=== PATIENT | male | born 1995 | race Hispanic/Latino ===

== ENCOUNTER 2016-09-07 19:49 | Observation (INO) | payer OTHER ==
[~2016-09-07] VITALS: Ht 167.6 cm; Wt 73.0 kg
[2016-09-07 19:57] VITALS: BP 106/64; PULSE 90; RESP 16; O2SAT 96
--- NOTE | 2016-09-07 20:38 | ED.REPORT ---
HPI-Rash / Abscess Date of Service Sep 07, 2016 ED Provider: Dr. Lili Cleaning Patient is a 21-year-old male who presents to the ED sent from due to rectal pain onset 7 days ago. Patient noticed pain and swelling to the perirectal area about a week ago. He was seen in tonight and was told he had a perirectal abscess. doctor attempted to drain but was unsuccessful. Pt was sent here for further evaluation. He reports that it does not hurt when he goes to the restroom, just when he tries to sit down. Pt denies fever, chills, and discharge. Nursing Notes Stated Complaint: ABSCESS Chief Complaint: Skin Rash/Abscess Nursing Notes Reviewed: Yes Allergies: Coded Allergies: No Known Allergies (Unverified , 09/07/16) General Time Seen by MD: 20:38 Chief Complaint Abscess Hx Obtained From: Patient Arrived By: Walk-in Onset Occurred: 1 week ago Symptom Duration: Since onset Location: : Rectal area Severity: Current: No pain currently Recent Healthcare: No recent doctor visit, No recent hospitalization Similar Sx Previous: No Past Medical History Past Medical History denies Past Surgical History denies Smoking History Unknown if Ever Smoker Social History Other Social History: Good social support, , Local resident Ambulatory Status Independent Review of Systems GI: Reports: Rectal pain Complete sys rev & neg: except as marked. Physical Exam Initial Vital Signs Vital Signs (First) Date Time Temp Pulse Resp B/P Pulse Ox O2 Delivery O2 Flow Rate FiO2 09/07/16 19:57 37.2 90 16 106/64 96 Room Air Initial VS: Reviewed, Vital signs normal Head / Eyes: Atraumatic, Normocephalic, PERRL ENT: Mucous membranes moist, Conjunctiva normal, No scleral icterus Neck: Supple, Non-tender, Full range of motion Respiratory: Breath sounds normal, Clear to auscultation, No respiratory distress Cardiovascular: Regular rate & rhythm, Heart sounds normal, Intact distal pulses Abdomen / GI: Soft, Non-tender, No guarding, No rebound, No distention Extremities: Vascular intact, Neuro intact, No swelling, No tenderness Neurologic: Alert, Oriented, Nonfocal Psychiatric: Mood/affect normal, Behavior normal, Normal thought content General/Constitutional: Awake, Alert, No acute distress, Well appearing, Well developed, Well hydrated, Cooperative, Not toxic appearing Abscess #1 Location/Condition: Positive: Perirectal... (Tender) area of 5cm induration to right gluteal fold into the anus with tenderness on rectal exam He has an area of induration to the right. Renal area and tenderness to palpation on the rectal exam. Interpretation & Diagnostics Interpretation & Diagnostics: CT PELVIS IMPRESSION: Small right perianal abscess. Short tubular structure extending form the collection into the right lateral anal margin, fistula difficult to exclude. No acute intrapelvic abnormalities. Lab Results Interpretation Result Diagram: 09/07/16211909/07/162119 Test 09/07/16 21:20 White Blood Count 11.5th/mm3 (3.8-10.1) Red Blood Count 4.69mil/mm3 (4.40-5.80) Hemoglobin 14.8g/dL (13.8-17.2) Hematocrit 41.5% (41.0-50.0) Mean Corpuscular Volume 88.5fL (81-100) Mean Corpuscular Hemoglobin 31.6pg (27.0-35.0) Mean Corpuscular Hemoglobin Concent 35.7% (32.0-37.0) Red Cell Distribution Width 11.8% (12.3-15.4) Platelet Count 308bil/L (150-400) Neutrophils (%) (Auto) 73.0% (40-74) Lymphocytes (%) (Auto) 16.6% (14-46) Monocytes (%) (Auto) 9.1% (4-12) Eosinophils (%) (Auto) 1.0% (0-5) Basophils (%) (Auto) 0.2% (0-3) Sodium Level 139mEq/L (134-144) Potassium Level 4.0mEq/L (3.5-5.2) Chloride Level 98mEq/L (97-108) Carbon Dioxide Level 25mmol/L (18-29) Blood Urea Nitrogen 12mg/dL (6-20) Creatinine 0.70mg/dL (0.76-1.27) Estimat Glomerular Filtration Rate 149mL/min (>59) Glucose Level 102mg/dL (60-99) Calcium Level 9.2mg/dL (8.5-10.1) Magnesium Level 2.2mg/dL (1.6-2.6) Hold Valverde Top Tube Received (Received) Re-Eval/Medical Decision Med Decision/Clinical Course The patient has a perirectal abscess which is deep and will require surgical debridement. He is given a dose of Zosyn and admitted to the hospital after speaking with Dr. Payne. Re-Evaluation/Progress : Time of Eval: 23:09 Patient Status: Condition unchanged Re-Evaluation/Progress Note: Pt rechecked. Informed pt of diagnosis and plan for admission. Pt understands and agrees with plan for admission. All questions addressed. Consultation : Referral / Consult Name: Brooke Bahena MD Consulted With: Hospitalist Call Returned at: 21:58 Note: Case discussed. Will call back after CT results. Counseled Regarding: Diagnosis, Lab results, Need for admission Discharge & Departure Impression: Primary Impression: Perirectal abscess Disposition: ADMITTED TO HOSPITAL Discharge Condition All VS Reviewed: Yes Condition: Stable Scribe Attestation Portion of this note were transcribed by Jorge Bang. I, Dr. Cleaning, personally performed the history, physical exam, and medical decision-making: I reviewed and confirmed the accuracy for the information in the transcribed note. Signed by: jackelyn Gandara, 09/07/16 0752 Chelo Cleaning MD Sep 07, 2016 20:38 JORGE BANG Sep 07, 2016 21:04
[2016-09-07] MEDS ORDERED: HYDROmorphone 0.5 mg/0.5 mL iSecure Syringe IVPUSH PRN (21:25)
[2016-09-07] MEDS ORDERED: 0.9% Sodium Chloride 1,000 ML IV ONE (21:25)
[2016-09-07 21:38] LABS: BASOPHILS % (AUTO) 0.2 % (0-3); MONOCYTES % (AUTO) 9.1 % (4-12); Mean Corpuscular Hemoglobin 31.6 pg (27.0-35.0); Mean Corpuscular Volume 88.5 fL (81-100); Platelet Count 308 bil/L (150-400)
[2016-09-07 22:09] LABS: Magnesium 2.2 mg/dL (1.6-2.6)
[2016-09-07 22:51] VITALS: BP 105/59; PULSE 83; RESP 16; O2SAT 98
[2016-09-07] MEDS ORDERED: Piperacillin-Tazo 3.375 Gm Inj 3.375 GM in Dextrose 5% Minibag Plus 50 ML IV ONE (23:05)
[2016-09-07] MEDS ORDERED: HYDROmorphone 1 mg/mL Inj IVPUSH PRN (23:30)
[2016-09-07] MEDS ORDERED: Ondansetron 2 mg/mL 2 mL Inj IVPUSH PRN (23:30)
[2016-09-07 23:52] VITALS: BP_SYST 105; BP_SYST 115; BP_DIAS 59; BP_DIAS 61; PULSE 62; PULSE 83; RESP 16; RESP 20; O2SAT 98
[2016-09-08] VITALS (7 sets, daily range): BP systolic 95–134; BP diastolic 36–68; PULSE 54–66; RESP 10–20; O2SAT 99–100
[2016-09-08] MEDS: D5 0.45% NaCl + KCl 20 mEq/L 1,000 ML IV SCH ×3 (00:05→11:57)
--- NOTE | 2016-09-08 02:12 | NUR ---
Admission note Pt arrived from ER to [id number] approx at 2345. Admission assessment and screening completed. POC discussed and reviewed with pt and he verbalizes understanding. Pt ate dinner upon arrival and he agrees to fast after midnight for possible I&D of right gluteal fold abscess.
[2016-09-08] MEDS: Piperacillin-Tazo 3.375 Gm Inj 3.375 GM in Dextrose 5% Minibag Plus 50 ML IV SCH ×2 (08:01→08:30)
--- NOTE | 2016-09-08 08:07 | DRSVH ---
PROCEDURE: CT PELVIS WITH CONTRAST ([id number]) INDICATIONS: perirectal abscess TECHNIQUE: After the administration of intravenous contrast, 5 mm thick sections acquired from the iliac crests to the symphysis. 5 mm coronal and sagittal reformats were acquired. For radiation dose reduction, the following was used: automated exposure control, adjustment of mA and/or kV according to patient size. COMPARISON: None. FINDINGS: Image quality: Excellent. Peritoneum and bowel: Bowel loops demonstrate normal wall thickness and caliber. No free fluid or a ir. The appendix is normal. There is a 2.8 x 2.7 x 2.7 cm fluid collection in the right perirectal pe rineum. Fluid collection has an enhancing periphery and adjacent inflammatory changes. Findings kingston tible with perirectal abscess. Linear soft tissue density structure extends from the perirectal absce ss to the right lateral renal margin may represent a fistula. Genitourinary: Bladder wall thickness is normal. Nodes and vessels: No iliac, pelvic, or inguinal adenopathy by size criteria. Iliac vessels demonst rate normal size and enhancement. Bones: No suspicious bony lesions. Miscellaneous: No inguinal hernias. IMPRESSION: Approximately 2.7 cm in diameter right perirectal abscess. Dictated by: Elli Dillon MD, PhD on 09/08/2016 at 8:01 Approved by: Elli Dillon MD, PhD on 09/08/2016 at 8:06
--- NOTE | 2016-09-08 09:35 | HP ---
[address] [address] HISTORY AND PHYSICAL PATIENT: CHEIKH HORNE : 1995 MR#: [id number] ADMIT: 09/07/2016 JOB ID: [id number] CHIEF COMPLAINT: Perianal abscess. HISTORY OF PRESENT ILLNESS: The patient is an otherwise healthy 21-year-old man who presented to the emergency department last night with worsening perianal pain. He tells me that he slowly developed perianal pain on the right side beginning about a week ago. It became acutely exacerbated yesterday prompting a visit to the emergency department. He denies any fevers, chills or night sweats. He has never had a problem like this before. He has no history of abdominal pain, diarrhea, constipation, and no family history of inflammatory bowel disease. He has not experienced any drainage. In the emergency department, he is found to have a mild leukocytosis of 11.5. His labs were otherwise essentially unremarkable. A CT scan was obtained which I personally reviewed and shows a 2.7 cm right perianal abscess. An attempt at drainage was made in the emergency department but rapidly abandoned and he was admitted to my service. PAST MEDICAL HISTORY: Acne. MEDICATIONS: Acne creams. ALLERGIES: No known drug allergies. PAST SURGICAL HISTORY: None. FAMILY HISTORY: Family history is reviewed. Negative for inflammatory bowel disease. SOCIAL HISTORY: He lives in [place], worked in welding, does not smoke, occasionally drinks alcohol. REVIEW OF SYSTEMS: Full review of systems is obtained, and as per the HPI. Otherwise negative. PHYSICAL EXAMINATION: He is afebrile with a temperature of 36.7 degrees, heart rate 60 beats per minute. Blood pressure 95/46, he is satting 99% on room air with a respiratory rate of 20 breaths per minute. In general, he appears comfortable, in no acute distress. Cardiovascular: Regular rate and rhythm. No appreciated murmurs, rubs, gallops. Pulmonary: His lungs are clear to auscultation bilaterally. Vascular: There is no carotid bruit. Neck has no thyromegaly. Lymph: He has no cervical lymphadenopathy. GI: His abdomen is soft, nontender, nondistended. Extremities: Warm without significant edema. Skin is warm without rash. Neuro is grossly intact. Psych is pleasant and appropriate. The perianal area was inspected. There is a small incision on the right perianal buttock. There is some induration and mild erythema surrounding this. LABORATORIES: His white blood cell count was 11.5. His hematocrit was 41.5. His platelet count was 308. Creatinine was 0.7. IMAGING: CT scan is personally reviewed and as per the HPI. ASSESSMENT AND PLAN: This is a 21-year-old otherwise healthy male with a right-sided perianal abscess with a failed attempt at drainage in the ED. I recommend incision and drainage of this abscess in the operating room. The technical and convalescent aspects of surgery were reviewed with the patient. This will be done this morning. I anticipate he will be able to go home. Discussed after care instructions.
--- NOTE | 2016-09-08 10:41 | NUR ---
Off unit Pt to OR at 1038 on stretcher. Pt A&O x 3, FREDY, MICHAELA, report called to [place]. Pt has IV antibiotics and fluids infusing. No c/o pain.
--- NOTE | 2016-09-08 10:54 | PCM.HPANE ---
Patient Data Date of Service: Sep 08, 2016 Surgeon Admitting Provider:Brooke Bahena MD Attending Provider:Brooke Bahena MD Primary Care Physician:Michela Other Provider:Jac Marmolejo Anesthesia Reason for Visit Kate Rectal Abscess Ht/WT & BMI Height (Feet): 5 Height (Inches): 6.00 Weight (Kilograms): 73.000 Body Mass Index 25.86 Allergies Coded Allergies: No Known Allergies (Unverified , 09/07/16) Diabetes History Hx Diabetes?: No MRSA MRSA: No History History of ENT Problems?: No Hx of Heart Problems?: No Cardiovascular History: Denies:: Congestive Heart Failure Hypertension Hx of Respiratory Problem?: No Respiratory History: Denies:: Tuberculosis Hx Neurologic Problems?: No Hx of GI Problems?: No Hx of Problems?: No Male Hx: Denies:: Prostate Problems Scrotal Mass Testicular Surgery Hx Musculoskeletal Problems?: No Hx of Psycho/Social Problems?: No Hx Surgeries?: No Hx Any Other Health Problems?: No History Blood Transfusions: Positive for:: Accept Blood Products? Denies:: Blood Transfusions Hx Diabetes: No Hx Alcohol Use: NoHx Substance Use: No Smoking Status: Unknown if Ever Smoker Have You Smoked inLast 12 mo: No Stop/Bang Treated for Sleep Apnea?: No Do You Have a CPAP Machine?: No S-Snoring: Do You Snore Loudly: No T-Tired: feel tired, fatigued: No O-Obsered: Observed not breath: No P-Blood Pressure: treated: No B- Body Mass Index > 35 kg/m2: No A- Age over 50: No N- Neck Large Circumference: No G- Gender Male: Yes KAYDEN Total Score: 1 KAYDEN Risk Assessment: Low Risk, <3 Yes Risk Assessment Category Category 1A: Patient has history of documented sleep apnea, and HAS NOT received any narcotic, sedative or anesthesia administration during this stay. Category 1B: Patient has history of documented sleep apnea, and HAS received any narcotic , sedative or anesthesia administration during this stay Category 2: Patient has SUSPECTED Obstructive Sleep Apnea, and HAS received any narcotic , sedative or anesthesia administration during this stay. Category 3: Patient has SUSPECTED Obstructive Sleep Apnea and HAS NOT received narcotic, sedative or anesthesia administration during this stay. Category 4: Outpatient in Procedural Areas with known sleep apnea or who screen positive for High Risk via the STOP/BANG questionnaire. Exam Exam Vital Signs Vital Signs Date Time Temp Pulse Resp B/P Pulse Ox O2 Delivery O2 Flow Rate FiO2 09/08/16 09:41 36.8 62 16 123/68 100 Room Air 09/08/16 04:59 36.7 60 20 95/46 99 Room Air General Appearance: Alert, Oriented X3, Cooperative HEENT/AIRWAY: MP 2, Neck Movement (Full), Mouth Opening (Wide), Other ( Slightly recessed jaw) Lungs: Clear to Auscultation, Normal Air Movement Heart: Regular Rate/Rhythm, Normal S1, Normal S2 Meds/Labs/Diagnostics Admission Meds Current Medications Sodium Chloride 1,000 ml @ 0 mls/hr Q0M ONCE IV Last administered on 09/07/16 21:54; Start 09/07/16 at 21:25; Stop 09/07/16 at 21:26; Status DC Piperacillin Sod/ Tazobactam Sod 3.375 gm/Dextrose/ Water 50 ml @ 100 mls/hr ONCE ONCE IV Last administered on 09/07/16 23:15; Start 09/07/16 at 23:05; Stop 09/07/16 at 23:34; Status DC Potassium Chloride/Dextrose/ Sod Cl 1,000 ml @ 160 mls/hr Q6H15M IV Last administered on 09/08/16 06:31; Start 09/07/16 at 23:27 Piperacillin Sod/ Tazobactam Sod/ Dextrose/Water (Zosyn 3.375 Gm Inj/D5W Minibag Plus) 50 ml @ 12.5 mls/hr Q8 IV Last administered on 09/08/16 08:01; Start 09/08/16 at 07:30 Labs Test 09/07/16 21:20 White Blood Count 11.5th/mm3 (3.8-10.1) Red Blood Count 4.69mil/mm3 (4.40-5.80) Hemoglobin 14.8g/dL (13.8-17.2) Hematocrit 41.5% (41.0-50.0) Mean Corpuscular Volume 88.5fL (81-100) Mean Corpuscular Hemoglobin 31.6pg (27.0-35.0) Mean Corpuscular Hemoglobin Concent 35.7% (32.0-37.0) Red Cell Distribution Width 11.8% (12.3-15.4) Platelet Count 308bil/L (150-400) Neutrophils (%) (Auto) 73.0% (40-74) Lymphocytes (%) (Auto) 16.6% (14-46) Monocytes (%) (Auto) 9.1% (4-12) Eosinophils (%) (Auto) 1.0% (0-5) Basophils (%) (Auto) 0.2% (0-3) Sodium Level 139mEq/L (134-144) Potassium Level 4.0mEq/L (3.5-5.2) Chloride Level 98mEq/L (97-108) Carbon Dioxide Level 25mmol/L (18-29) Blood Urea Nitrogen 12mg/dL (6-20) Creatinine 0.70mg/dL (0.76-1.27) Estimat Glomerular Filtration Rate 149mL/min (>59) Glucose Level 102mg/dL (60-99) Calcium Level 9.2mg/dL (8.5-10.1) Magnesium Level 2.2mg/dL (1.6-2.6) Hold Valverde Top Tube Received (Received) Plan Impression Patient chart reviewed, patient interviewed and anesthestic plan with risks, benefits, and alternatives discussed, and informed consent obtained. NPO Status: > 8 hours ASA Physical Status: ASA1 Normal Healthy Anesthetic Plan: GA Bene/Risks/Altern/Consents: Yes HP Complete Prior to Induction: Yes Florin Nelson MD Sep 08, 2016 10:46
[2016-09-08] MEDS ORDERED: Bupivacaine 0.5%/EPI 50 mL Inj INFILTRATE ONE (11:14)
[2016-09-08] MEDS ORDERED: Lactated Ringer's 1,000 ML IV ONE (11:15)
[2016-09-08] MEDS ORDERED: oxyCODONE-Acetamin 5-325 mg Tablet PO PRN (11:35)
--- NOTE | 2016-09-08 11:39 | PCM.DISURG ---
Surgical Discharge Instruction Date of Service Sep 08, 2016 Dates of Hospitalization Date of Hospital Admission Sep 07, 2016 at 23:11 Providers Admitting Physician: Brooke Bahena MD Primary Care Physician: Michela Attending Physician: Brooke Bahena MD Discharge Diagnosis Discharge Diagnosis perianal abscess Diet Discharge Diet: No restrictions Activity Discharge Activity-General: Be up and about, No driving while taking narcotic Dressing and Incisional Care Dressing Care: Other (Remove packing on Saturday) Hygiene: May shower Follow Up Plan Follow Up Plan follow up with Dr Gar on Saturday or Saturday Call your provider for: Fever, Chills Shawn Gar MD Sep 08, 2016 11:38
[2016-09-08] MEDS ORDERED: AGM875T PO (11:40)
[2016-09-08] MEDS ORDERED: OXYC1TAB24 PO (11:40)
--- NOTE | 2016-09-08 11:44 | PCM.ANEP1 ---
Post Anesthesia Phase 1 PACU Phase 1 Assessment Date of Service: Sep 08, 2016 Vital Signs Vital Signs Date Time Temp Pulse Resp B/P Pulse Ox O2 Delivery O2 Flow Rate FiO2 09/08/16 09:41 36.8 62 16 123/68 100 Room Air 09/08/16 04:59 36.7 60 20 95/46 99 Room Air Anesthetic Administered: GA Level of Alertness: Sleepy, easy to arouse DANIEL's with Equal Strength: Yes Pain: No Nausea or Vomiting: No Oxygen Delivery: Simple Mask Lungs: Normal Air Movement Florin Nelson MD Sep 08, 2016 11:44
--- NOTE | 2016-09-08 11:50 | PCM.ANEP2 ---
Post Anesthesia Evaluation ASA/CMS Post Anesthesia Date of Service: Sep 08, 2016 VS in Patient's Normal Range?: Yes Resp Stable; Airway Patent?: Yes CV Function & Hydration Stable: Yes Mental Status Recovered?: Yes Pain control Satisfactory?: Yes N/V Control Satisfactory?: Yes Florin Nelson MD Sep 08, 2016 11:50
--- NOTE | 2016-09-08 12:27 | OP ---
[address] [address] OPERATIVE REPORT PATIENT: CHEIKH HORNE : 1995 MR#: [id number] ADMIT: 09/07/2016 JOB ID: [id number] DATE OF SURGERY: 09/08/2016 ANESTHESIA: General. PREOPERATIVE DIAGNOSIS(ES): Right perianal abscess. POSTOPERATIVE DIAGNOSIS(ES): Right perianal abscess. OPERATIVE PROCEDURE: 1. Examination under anesthesia. 2. Incision and drainage of right perianal abscess. SURGEON: Shawn Gar MD. SHE[employer]URING [employer]PERVISOR: None. COMPLICATIONS: None. ESTIMATED BLOOD LOSS: Minimal. CONDITION: Satisfactory. SPECIMEN: Cultures were sent. FINDINGS: There was an abscess containing probably 4 or 5 mL of purulent material in the right anterior position (10 o'clock in lithotomy) with an incision made about 6 cm from the anal verge. INDICATIONS/SIGNIFICANT HISTORY: The patient is a 21-year-old man who presented to the emergency department yesterday evening complaining of perianal pain. CT scan was obtained which showed a small perianal abscess. Attempt at incision and drainage was made in the ED but ultimately failed. Surgery, therefore, was consulted and admitted the patient, planning to take him to the operating room today. OPERATIVE TECHNIQUE: The patient was taken to the operating room and placed in supine position. General anesthesia was administered. He had already received broad-spectrum antibiotics. He was placed in lithotomy and then the perineum was prepped and draped in standard surgical fashion. A procedure pause was performed. I began by opening the incision that had been made in the ED a little more extensively. I took some prodrome but eventually I found the pocket of pus and I broke into that with a Misty. Some of the purulent material was sent. I then copiously irrigated that out. I did a digital rectal examination and also performed anoscopy. There was no evidence of an internal fistula opening. After irrigating out the abscess cavity, it was packed with iodoform gauze. Local anesthetic was infused. The case was then concluded. [facility]
[2016-09-08] MEDS ORDERED: Propofol 10,000 mCg/mL 20 mL Inj ONE (16:08)
[2016-09-08] MEDS ORDERED: fentaNYL-PF 50 mCg/mL 2 mL Inj ONE (16:08)
[2016-09-08] MEDS ORDERED: Ondansetron 2 mg/mL 2 mL Inj ONE (16:08)
[2016-09-08] MEDS ORDERED: Lidocaine PF 1% 30 mL Inj ONE (16:08)
--- NOTE | 2016-09-08 17:14 | NUR ---
Discharge Pt discharged at 1609 to private vehicle with girlfriend. Pt has discharge instructions, rx's, care notes and note for missing work. All questions answered and pt is aware of s/s to return to hospital and when to make f/u appt. Pt VSS, FREDY, A&O x 3, no c/o pain. IV removed intact. Pt has iodoform in place with clean peripad and mesh underwear. Pt has all belongings.
[2016-09-08] MEDS ORDERED: Amoxicillin-Clav 875-125 mg Tablet PO SCH (20:30)
--- NOTE | 2016-09-10 12:29 | PCM.DC.SUR ---
Discharge Summary Date of Service: Date of Hospital Admission: Sep 07, 2016 at 23:11 Date of Operation(s): 09/07/2016 Date of Discharge: 09/08/2016 Diagnosis at Time of Discharge Primary diagnosis: Perirectal abscess Secondary diagnoses: Acne Problems: Operation 1. Examination under anesthesia. 2. Incision and drainage of right perianal abscess. Brief History and Physical: The patient is an otherwise healthy 21-year-old man who presented to the emergency department last night with worsening perianal pain. He tells me that he slowly developed perianal pain on the right side beginning about a week ago. It became acutely exacerbated yesterday prompting a visit to the emergency department. He denies any fevers, chills or night sweats. He has never had a problem like this before. He has no history of abdominal pain, diarrhea, constipation, and no family history of inflammatory bowel disease. He has not experienced any drainage. In the emergency department, he is found to have a mild leukocytosis of 11.5. His labs were otherwise essentially unremarkable. A CT scan was obtained which I personally reviewed and shows a 2.7 cm right perianal abscess. An attempt at drainage was made in the emergency department but rapidly abandoned and he was admitted to my service. Consultants: Dr. Gar general surgery Hospital Course: Patient taken to OR at 1038 on stretcher. A&O x 3, MICHAELA DANIEL, Patient has IV antibiotics and fluids infusing. No c/o pain 09/08/16 1150 - JERRALD COLTON: 1136 from OR with report from RN and anes. Extub and suctioned in pacu, then resps, sats, airway OK O2 10 l/min simple mask. IV ok. Zosyn infusing 1145 Waking. Denies discomfort. Denies nausea. 09/08/16 1232 - JERRALD COLTON: To floor. VSS, alert, comfortable, nausea free. ABD with light pink drainage, not changed in pacu. Iodoform wick visualized at incision right buttock. Pt discharged at 1609 to private vehicle with girlfriend. Pt has discharge instructions, rx's, care notes and note for missing work. All questions answered and pt is aware of s/s to return to hospital and when to make f/u appt. Pt FREDY JENNINGS, A&O x 3, no c/o pain. IV removed intact. Pt has iodoform in place with clean peripad and mesh underwear. Pt has all belongings. Pathology: None Disposition: Home Follow-up Plan: Dr Gar on Saturday or Saturday Amoxicillin/Clav K 875-125 mg (Amoxicillin/Clav K 875-125 mg) 875 Mg Tab 1 TAB PO BID oxyCODONE-Acetaminophen 5-325 mg (oxyCODONE-Acetaminophen 5-325 mg) 1 Each Tablet 1-2 TAB PO Q6H PRN PRN For Pain Erma Vargas PA-C Sep 10, 2016 12:29
== END 2016-09-08 16:09 | disposition home or self-care (01) ==
LOC: SED 19:49 → OSC 23:11
PROVIDERS: ADMIT Student in an Organized Health Care Education/Training Program; ATTEND General Practice
PROC: 0J9B3ZZ Drainage of Perineum Subcutaneous Tissue and Fascia, Percutaneous Approach (ICD-10-PCS; principal; 2016-09-08 11:00)
DX: K61.0 Anal abscess (principal); L70.9 Acne, unspecified
CPT/HCPCS: 36415; 46050; 72193; 80048; 83735; 85025; 87070; 87075; 87076; 87077; 87185; 87186; 87205; 96361; 99285; G0378; G0463; J2250; J2405; J2543; J3010; J7030; J7120; Q9967

== ENCOUNTER → 2017-01-31 | Day surgery (SDC) | payer OTHER ==
[2017-01-31] VITALS (8 sets, daily range): BP systolic 107–128; BP diastolic 43–59; PULSE 57–89; RESP 15–17; O2SAT 96–99
[~2017-01-31] VITALS: Ht 167.6 cm; Wt 73.9 kg
[~2017-01-31] MED LIST: Bupivacaine-MPF 0.25%/EPI 30 mL Inj INFILTRATE ONE; CLIN60LO2 TP; CeFAZolin 2 Gm/50 mL D5W Duplex Bag IV ONE; CeFAZolin 2 Gm/50 mL D5W IV Premix IV ONE; Dexamethasone 4 mg/mL Inj IVPUSH PRN; Dexamethasone 4 mg/mL Inj ONE; EPHEDrine Sulfate 50 mg/mL Inj IVPUSH PRN; HYDROmorphone 1 mg/mL Inj IVPUSH PRN; Ketamine 10 mg/mL 20 mL Inj ONE; Lactated Ringer's 1,000 ML IV SCH; Lactated Ringer's 500 ML IV PRN; MINO50TA PO; MetoCLOpramide 5 mg/mL 2 mL Inj IVPUSH PRN; MetoCLOpramide 5 mg/mL 2 mL Inj ONE; Ondansetron 2 mg/mL 2 mL Inj IVPUSH PRN; Ondansetron 2 mg/mL 2 mL Inj ONE; Phenylephrine 10,000 mCg/mL Inj IVPUSH PRN; Propofol 10,000 mCg/mL 20 mL Inj ONE; TRET40CR4 TP; fentaNYL-PF 50 mCg/mL 2 mL Inj IVPUSH PRN; fentaNYL-PF 50 mCg/mL 2 mL Inj ONE; metroNIDAZOLE 500 mg/100 mL NS Premix IV ONE; oxyCODONE-Acetamin 5-325 mg Tablet PO PRN
[2017-01-31] MEDS: Lactated Ringer's 1,000 ML IV SCH ×2 (15:28→16:28)
--- NOTE | 2017-01-31 16:26 | PCM.HPANE ---
Patient Data Surgeon Admitting Provider: Attending Provider:Shawn Gar MD Primary Care Physician:Michela Other Provider:Jac Marmolejo Anesthesia Reason for Visit Anal Fistula Ht/WT & BMI Height (Feet): 5 Height (Inches): 6 Weight (Kilograms): 73.93 Body Mass Index 26.00 Allergies Coded Allergies: No Known Allergies (Unverified , 09/07/16) Past Anesthesia History Anesthesia History: Denies:: Anesthesia Reactions Diabetes History Hx Diabetes?: No MRSA MRSA: No Medications Hypertension Medication: No Home Meds Incl Beta Ashley: No Reported Medications Tretinoin/Emollient Base (Tretinoin 0.05% Emollient Crm)60 Gm Cream..g.60 Gm TP HS 01/28/17 Clindamycin Phosphate (Clindamycin Phosphate Topical)60 Ml Lotion1 Applic TP BID #60 ML Ref 0 01/28/17 Discontinued Reported Medications Minocycline 50 Mg [id number] Mg PO DAILY Ref 0 01/28/17 Discontinued Scripts Amoxicillin/Clav K 875-125 mg 875 Mg Tab1 Tab PO BID #10 TAB Prov:Shawn Gar MD 09/08/16 oxyCODONE-Acetaminophen 5-325 mg 1 Each Tablet1-2 Tab PO Q6H PRN For Pain #20 TABLET Prov:Shawn Gar MD 09/08/16 History History of ENT Problems?: No HEENT History: Denies:: Abnormal Airway Cataracts Difficult Intubation Dysphagia Glaucoma Hearing Problem Sinus Problem TMJ Denture Type: None Teeth Condition: Within Normal Limits Hx of Heart Problems?: No Cardiovascular History: Denies:: Congestive Heart Failure Edema Hypertension Hx of Respiratory Problem?: No Respiratory History: Denies:: Asthma COPD Cough Emphysema Oxygen Administration Tuberculosis Use of C-PAP Machine Use of Inhalers / NEBS Hx Neurologic Problems?: No Neurological History: Denies:: CVA Multiple Sclerosis Parkinson's Disease Seizures Hx of GI Problems?: Yes Other GI Pertinent History: Initial surgery here for abscess 09/2016 Hx of Problems?: No Male Hx: Denies:: Prostate Problems Scrotal Mass Testicular Surgery Skin History: Denies:: History Skin Disorders? Pressure Ulcers Hx Musculoskeletal Problems?: No Musculoskeletal History: Denies:: Fibromyalgia Joint Replacement Myasthenia Gravis Osteoarthritis Hx of Psycho/Social Problems?: No Hx Surgeries?: Yes Hx Any Other Health Problems?: Yes Other History: Denies:: Cancer Thyroid Disease History Blood Transfusions: Denies:: Blood Transfusions Hx Diabetes: No Hx Alcohol Use: NoHx Substance Use: No Smoking Status: Unknown if Ever Smoker Have You Smoked inLast 12 mo: No Stop/Bang Treated for Sleep Apnea?: No Do You Have a CPAP Machine?: No S-Snoring: Do You Snore Loudly: No T-Tired: feel tired, fatigued: No O-Obsered: Observed not breath: No P-Blood Pressure: treated: No B- Body Mass Index > 35 kg/m2: No N- Neck Large Circumference: No G- Gender Male: Yes KAYDEN Risk Assessment: Low Risk, <3 Yes Risk Assessment Category Category 1A: Patient has history of documented sleep apnea, and HAS NOT received any narcotic, sedative or anesthesia administration during this stay. Category 1B: Patient has history of documented sleep apnea, and HAS received any narcotic , sedative or anesthesia administration during this stay Category 2: Patient has SUSPECTED Obstructive Sleep Apnea, and HAS received any narcotic , sedative or anesthesia administration during this stay. Category 3: Patient has SUSPECTED Obstructive Sleep Apnea and HAS NOT received narcotic, sedative or anesthesia administration during this stay. Category 4: Outpatient in Procedural Areas with known sleep apnea or who screen positive for High Risk via the STOP/BANG questionnaire. Exam Exam Vital Signs Vital Signs Date Time Temp Pulse Resp B/P Pulse Ox O2 Delivery O2 Flow Rate FiO2 01/31/17 12:08 36.3 62 16 127/45 96 Room Air General Appearance: Oriented X3 HEENT/AIRWAY: MP 2 Lungs: Normal Air Movement Heart: Regular Rate/Rhythm Meds/Labs/Diagnostics Admission Meds Current Medications Lactated Ringer's (Lr) 1,000 ml @ 120 mls/hr Q8H20M IV Last administered on t 15:28; Start 01/31/17 at 05:00; Stop 01/31/17 at 13:19; Status DC Plan Impression Patient chart reviewed, patient interviewed and anesthestic plan with risks, benefits, and alternatives discussed, and informed consent obtained. ASA Physical Status: ASA2 Mod Systemic Disease Anesthetic Plan: GA Bene/Risks/Altern/Consents: Yes HP Complete Prior to Induction: Yes Pepe White MD Jan 31, 2017 16:26
--- NOTE | 2017-01-31 19:35 | OP ---
[address] [address] OPERATIVE REPORT PATIENT: CHEIKH HORNE : 1995 MR#: [id number] ADMIT: 01/31/2017 JOB ID: [id number] DATE OF SURGERY: 01/31/2017 ANESTHESIA: General. PREOPERATIVE DIAGNOSIS(ES): Fistula in ano. POSTOPERATIVE DIAGNOSIS(ES): Chronic recurrent perianal abscess. OPERATION: 1. Exam under anesthesia. 2. Unroofing of chronic perianal abscess. SURGEON: Dr. Shawn Gar. QUEEN'S COUNSEL: Judson Siegel PA-C (the veterinary technician assistant was required for the safe and timely completion of the case). COMPLICATIONS: None. ESTIMATED BLOOD LOSS: None. CONDITION: Satisfactory. SPECIMEN: None. FINDINGS: In the area of the recurrent drainage, I was able to probe a lacrimal duct probe to about 2 cm deep. I was unable to find any fistula tract. I therefore unroofed this area and curetted it out. INDICATIONS/SIGNIFICANT HISTORY: The patient is a 21-old-man whom I performed an incision and drainage of a right perianal abscess in September. He returned recently to see me, complaining of recurrent pimples at the drainage site. I suspect that he had a fistula and therefore recommended an exam under anesthesia. OPERATIVE TECHNIQUE: The patient was taken to the operating room and placed in supine position. General anesthesia was administered and preoperative antibiotics were given. The perineum was prepped and draped in standard surgical fashion. A procedural pause was performed. Digital rectal exam was unremarkable. Endoscopy was unremarkable. I used a lacrimal duct probe to open up the old incision. This was only probed about 2 cm deep. I then instilled hydrogen peroxide through this and examined the internal anal canal for any evidence of an internal opening. None could be identified. I continued to alternate between attempting to find a tract using the lacrimal duct probe and hydrogen peroxide. I was able to probe a little bit deeper, but it seemed that I was just initially creating an attractive muscle fibers with a lacrimal duct probe, rather than actually identifying a true fistula. After multiple attempts to identify a fistula, I decided to just excise that skin and curette out the subcutaneous tissue. I then injected local anesthetic. I then completed the case.
--- NOTE | 2017-02-01 08:10 | PCM.ANEP1 ---
Post Anesthesia PACU Phase 1 Assessment Anesthetic Administered: GA Level of Alertness: Awake, talking Pain: No Nausea or Vomiting: No CV Function & Hydration Stable: Yes Airway Device: Lungs: Normal Air Movement PACU Phase 2 Assessment Patient Instructions Provided: N/A Pepe White MD Feb 01, 2017 08:10
== END | disposition home or self-care (01) ==
LOC: SAS 11:34
PROVIDERS: ATTEND General Practice
DX: K61.0 Anal abscess (principal)
CPT/HCPCS: 46270; J0690; J1100; J2405; J2765; J3010; J3490; J7120